=== PATIENT | male | born 1985 | race Two or more races ===

== ENCOUNTER → 2024-04-24 | Outpatient (CLI) | payer BC, SELFPAY ==
--- NOTE | 2024-04-24 | XR_ITS ---
Examination: Shoulder,right, 3 views Technique: Shoulder AP internal rotation, AP external rotation, Y view shoulder, 3 views Exam date and time :April 24, 2024 1235 hours INDICATIONS: Right shoulder pain beginning one month ago. FINDINGS: Mild osteopenia Moderate narrowing glenohumeral joint No fracture or shoulder dislocation IMPRESSION: Moderate narrowing glenohumeral joint
--- NOTE | 2024-04-24 | XR_ITS ---
Examination: Right wrist 2 views Technique one AP lateral right wrist 2 views Exam date and time: April 24, 2024 1306 hours INDICATIONS: Cramping in the wrist 11 months FINDINGS: No acute fracture No lateral view the distal ulna is dorsally positioned IMPRESSION: No acute fracture Recommend follow-up true lateral view wrist to exclude dorsal subluxation of the distal ulna as clinically warranted
--- NOTE | 2024-04-24 | XR_ITS ---
EXAMINATION: Cervical spine, 5 views Technique: Cervical spine AP, AP odontoid, lateral, bilateral obliques, 5 views Exam date and time: April 24, 2024 1242 hours INDICATIONS: Neck pain radiating down the right arm beginning 11 months ago. FINDINGS: Reversal normal cervical lordosis No cervical fracture Mild to moderate degenerative disc disease C5-C6 C6-C7 with moderate bilateral foraminal stenosis C6-C7 Intact odontoid IMPRESSION: Mild to moderate degenerative disc disease C5-C6, C6-C7
--- NOTE | 2024-04-24 | XR_ITS ---
Examination: Right elbow 2 views Technique one AP lateral right elbow 2 views Exam date and time: April 24, 2024 at 1300 hours INDICATIONS: elbow pain 11 months FINDINGS: No fracture or dislocation No arthritic change. No elbow effusion IMPRESSION: Negative for osseous abnormality
== END | disposition home or self-care (01) ==
PROVIDERS: PCP Internal Medicine; Referring Provider Orthopaedic Surgery; Visit Provider Orthopaedic Surgery
DX: M25.521 Pain in right elbow (principal); M25.531 Pain in right wrist; M25.811 Other specified joint disorders, right shoulder; M50.322 Other cervical disc degeneration at C5-C6 level
CPT/HCPCS: 72050; 73030; 73070; 73100

== ENCOUNTER → 2024-07-09 | Outpatient (CLI) | payer BC, SELFPAY ==
--- NOTE | 2024-07-09 07:00 | XR_ITS ---
Examination: MRI cervical spine without intravenous contrast Date and time of exam: July 09, 2024 0724 hours INDICATIONS: Neck pain stiffness numbness in the fingers on the right hand beginning 3 years ago, worse the last 8 months Technique: Multiple axial and sagittal sections of the cervical spine to been obtained. T2 weighted sagittal sections, TR 3, 270, TE 117 T1-weighted sagittal sections, TR 500, TE 11 T1-weighted axial sections, TR 607, TE 12, axial sections TR 18, TE 27 and T2 weighted transverse sections, TR 3920, TE 122. Findings: The images are degraded by patient motion Moderate disc narrowing C5-C6 No cervical fracture Intact odontoid No localized enlargement cervical cord C2-C3 no disc protrusion C3-C4 mild bilateral neural foraminal stenosis C4-C5 mild bilateral neural foraminal stenosis C5-C6 4 mm central subarticular osteophyte disc complex, moderate bilateral neural foraminal stenosis C6-C7 3 mm central 4 mm left subarticular osteophyte disc complex advanced bilateral neural foraminal stenosis C7-T1 no disc protrusion IMPRESSION: C5-C6 4 mm central subarticular osteophyte disc complex, moderate bilateral neural foraminal stenosis C6-C7 3 mm central 4 mm left subarticular osteophyte disc complex, advanced bilateral neural foraminal stenosis
== END | disposition home or self-care (01) ==
LOC: SMRI 06:47
PROVIDERS: PCP Internal Medicine; Referring Provider Orthopaedic Surgery; Visit Provider Orthopaedic Surgery
DX: M25.78 Osteophyte, vertebrae (principal); M48.02 Spinal stenosis, cervical region
CPT/HCPCS: 72141

== ENCOUNTER → 2024-07-19 | Outpatient (CLI) | payer BC, SELFPAY ==
--- NOTE | 2024-07-19 09:45 | XR_ITS ---
Examination: MRI right wrist, without contrast Date and time of exam: July 19, 2024 1009 hours INDICATIONS: Right wrist pain numbness paresthesias loss of strength in the right hand wrist joint locking and clicking beginning 3 years ago Technique: Multiple axial sagittal and coronal images of the right wrist have been obtained with the Siemens high-resolution 1.5 [employer] MRI scanner. Images obtained include T2-weighted fat-suppressed sagittal sections, TR 3500, TE 46, T2 weighted coronal fat suppressed images, TR 3050, TE 84, T2-weighted transverse fat suppressed images, TR 3260, TE 63, proton density transverse images, TR 4720 TE 46, and T1 weighted coronal images, TR 560, TE 13. Findings: Significant narrowing radiocarpal joint [place] fibrocartilage intact No marrow edema bone contusion or occult fracture involving distal radius distal ulna or carpal bones Flexor tendons at the wrist appear intact with normal median nerve Extensor tendons appear intact There is fluid surrounding the extensor carpi ulnaris as well as extensor digiti minimi IMPRESSION: No occult fracture bone marrow edema or bone contusion Extensor tendinitis as above
== END | disposition home or self-care (01) ==
PROVIDERS: PCP Internal Medicine; Referring Provider Orthopaedic Surgery; Visit Provider Orthopaedic Surgery
DX: M67.833 Other specified disorders of tendon, right wrist (principal); S63.391A Traumatic rupture of other ligament of right wrist, initial encounter; X58.XXXA Exposure to other specified factors, initial encounter
CPT/HCPCS: 73221